=== PATIENT | male | born 1995 | race Hispanic/Latino ===

== ENCOUNTER 2021-01-18 10:55 | Emergency (ER) | payer SELFPAY ==
--- NOTE | 2021-01-18 13:16 | RAD REPORT ---
EXAM DESCRIPTION: Joseluis Single View01/18/2021 1:09 pm CLINICAL HISTORY: Chest pain COMPARISON: none FINDINGS: The lungs appear clear of acute infiltrate. The heart is normal size IMPRESSION: No acute abnormalities displayed
[2021-01-18 13:27] LABS: Basophils % 0.4 % (0-1.3); Hematocrit 52.7 % (39.6-49.0); MPV 8.3 fL (7.6-11.3); RBC Red Blood Cell Count 5.66 M/uL (4.33-5.43)
[2021-01-18] MEDS ORDERED: ASPIRIN 81 MG CHEWABLE TABLET ONE (13:29)
[2021-01-18] MEDS ORDERED: NA CHLORIDE 0.9% 1,000 ML ONE (13:30)
[2021-01-18 13:51] LABS: ALT/SGPT 22 U/L (12-78); AST/SGOT 16 U/L (15-37); Albumin 4.9 g/dL (3.4-5.0); Alkaline Phosphatase 70 U/L (45-117); BUN Blood Urea Nitrogen 15 mg/dL (7-18); Bicarbonate 24 mmol/L (21-32); Bilirubin Direct 0.1 mg/dL (0-0.2); Bilirubin Total 0.8 mg/dL (0.2-1.0); Glucose Level 91 mg/dL (74-106); Magnesium 2.5 mg/dL (1.8-2.4); Potassium 3.6 mmol/L (3.5-5.1); Protein, Total 8.7 g/dL (6.4-8.2); Sodium Level 139 mmol/L (136-145); Troponin (Emerg Dept Use Only) < 0.02 ng/mL (0.0-0.045)
--- NOTE | 2021-01-18 14:01 | EDPHYS ---
Physician Documentation [facility] Name: Joseluis Fowler Jr Age: 25 yrs Sex: Male : 1995 Arrival Date: 01/18/2021 Time: 10:56 Bed 11 Private MD: ED Physician Sheldon Campbell HPI: 01/18 13:22 This 25 yrs old Male presents to ER via Ambulatory with complaints of Chest wojciech Pain, Abnormal EKG. 13:22 The patient or guardian reports chest pain that is located primarily in the anterior wojciech chest wall. The pain does not radiate. Associated signs and symptoms: Pertinent positives: shortness of breath. The chest pain is described as a pressure. Duration: The patient or guardian reports multiple episodes, with no pattern. Severity of pain: At its worst the pain was mild in the emergency department the pain is unchanged. The patient has not experienced similar symptoms in the past. Historical: - Allergies: 11:20 No Known Allergies; vg1 - Home Meds: 11:20 finasteride oral [Active]; vg1 - PMHx: 11:20 None; vg1 - PSHx: 11:20 None; vg1 - Immunization history:: Client reports receiving the 2nd dose of the Covid vaccine. - Social history:: Smoking status: Patient denies any tobacco usage or history of. - Family history:: not pertinent. ROS: 13:22 Constitutional: Negative for fever, chills, and weight loss, Eyes: Negative for injury, wojciech pain, redness, and discharge, ENT: Negative for injury, pain, and discharge, Neck: Negative for injury, pain, and swelling, Respiratory: Negative for shortness of breath, cough, wheezing, and pleuritic chest pain, Abdomen/GI: Negative for abdominal pain, nausea, vomiting, diarrhea, and constipation, Back: Negative for injury and pain, : Negative for injury, bleeding, discharge, and swelling, MS/Extremity: Negative for injury and deformity, Skin: Negative for injury, rash, and discoloration, Neuro: Negative for headache, weakness, numbness, tingling, and seizure, Psych: Negative for depression, anxiety, suicide ideation, homicidal ideation, and hallucinations, Allergy/Immunology: Negative for hives, rash, and allergies, Endocrine: Negative for neck swelling, polydipsia, polyuria, polyphagia, and marked weight changes, Hematologic/Lymphatic: Negative for swollen nodes, abnormal bleeding, and unusual bruising. 13:22 Cardiovascular: Positive for chest pain, of the chest. Exam: 13:22 Constitutional: This is a well developed, well nourished patient who is awake, alert, wojciech and in no acute distress. Head/Face: Normocephalic, atraumatic. Eyes: Pupils equal round and reactive to light, extra-ocular motions intact. Lids and lashes normal. Conjunctiva and sclera are non-icteric and not injected. Cornea within normal limits. Periorbital areas with no swelling, redness, or edema. ENT: Nares patent. No nasal discharge, no septal abnormalities noted. Tympanic membranes are normal and external auditory canals are clear. Oropharynx with no redness, swelling, or masses, exudates, or evidence of obstruction, uvula midline. Mucous membranes moist. Neck: Trachea midline, no thyromegaly or masses palpated, and no cervical lymphadenopathy. Supple, full range of motion without nuchal rigidity, or vertebral point tenderness. No Meningismus. Chest/axilla: Normal chest wall appearance and motion. Nontender with no deformity. No lesions are appreciated. Cardiovascular: Regular rate and rhythm with a normal S1 and S2. No gallops, murmurs, or rubs. Normal PMI, no JVD. No pulse deficits. Respiratory: Lungs have equal breath sounds bilaterally, clear to auscultation and percussion. No rales, rhonchi or wheezes noted. No increased work of breathing, no retractions or nasal flaring. Abdomen/GI: Soft, non-tender, with normal bowel sounds. No distension or tympany. No guarding or rebound. No evidence of tenderness throughout. Back: No spinal tenderness. No costovertebral tenderness. Full range of motion. Male : Normal genitalia with no discharge or lesions. Skin: Warm, dry with normal turgor. Normal color with no rashes, no lesions, and no evidence of cellulitis. MS/ Extremity: Pulses equal, no cyanosis. Neurovascular intact. Full, normal range of motion. Neuro: Awake and alert, GCS 15, oriented to person, place, time, and situation. Cranial nerves II-XII grossly intact. Motor strength 5/5 in all extremities. Sensory grossly intact. Cerebellar exam normal. Normal gait. Psych: Awake, alert, with orientation to person, place and time. Behavior, mood, and affect are within normal limits. 13:22 Musculoskeletal/extremity: DVT Exam: No signs of deep vein thrombosis. no pain, no swelling, no tenderness, negative Homans' sign noted on exam, no appreciated bluish discoloration, no erythema, no increased warmth. 13:24 ECG was reviewed by the Attending Physician. [facility] Vital Signs: 11:17 BP 139 / 92; Pulse 95; Resp 16; Temp 99.2; Pulse Ox 100% ; Weight 63.05 kg; Height 5 vg1 ft. 4 in. (162.56 cm); Pain 0/10; 11:17 Body Mass Index 23.86 (63.05 kg, 162.56 cm) vg1 MDM: 12:55 Patient medically screened. wojciech 13:25 Differential diagnosis: abnormal EKG, acute myocardial infarction, acute pericarditis, wojciech anxiety, coronary artery disease chest wall pain, esophagitis, gastroesophageal reflux disease (GERD), pericarditis, pleurisy, pneumonia, pneumothorax, pulmonary embolus, stable angina, unstable angina. HEART Score: History: Slightly Suspicious (0), ECG: Normal (0), Age: < or = 45 years (0), Risk Factors: No Risk Factors Known (0), Troponin: < or = 1 x Normal Limit (0), Total Score = 0. The patient's deep vein thrombosis risk score was calculated as follows: Total Score: 0. This patient was found to be at low risk for a deep vein thrombosis by using the Well's assessment criteria. The patient's pulmonary embolism risk score was calculated as follows: Total Score: 0-2 points. This patient was found to be at low risk for a pulmonary embolism by using the Well's assessment criteria. MAGDA Risk Score: TOTAL SCORE = 0. Data reviewed: vital signs, nurses notes, lab test result(s), EKG, radiologic studies, plain films. Data interpreted: gambling monitor: rate is 95 beats/min, rhythm is regular, Pulse oximetry: on room air is 100 %. Test interpretation: by ED physician or midlevel provider: ECG, plain radiologic studies. Counseling: I had a detailed discussion with the patient and/or guardian regarding: the historical points, exam findings, and any diagnostic results supporting the discharge/admit diagnosis, lab results, radiology results, the need for outpatient follow up, for definitive care, a maintenance millwright, a family practitioner. 01/18 12:56 Order name: Basic Metabolic Panel; Complete Time: 13:53 [facility] 01/18 12:56 Order name: CBC with Diff; Complete Time: 13:42 [facility] 01/18 12:56 Order name: LFT's; Complete Time: 13:53 [facility] 01/18 12:56 Order name: Magnesium; Complete Time: 13:53 [facility] 01/18 12:56 Order name: Troponin (emerg Dept Use Only); Complete Time: 13:53 [facility] 01/18 12:56 Order name: D-Dimer; Complete Time: 13:42 [facility] 01/18 12:56 Order name: XRAY Chest (1 view); Complete Time: 13:42 [facility] 01/18 12:56 Order name: EKG; Complete Time: 12:57 [facility] 01/18 12:56 Order name: Cardiac monitoring; Complete Time: 13:22 [facility] 01/18 12:56 Order name: EKG - Nurse/Tech; Complete Time: 13:22 [facility] 01/18 12:56 Order name: IV Saline Lock; Complete Time: 13:22 [facility] 01/18 12:56 Order name: Labs collected and sent; Complete Time: 13:22 [facility] 01/18 12:56 Order name: O2 Per Protocol; Complete Time: 13:22 [facility] 01/18 12:56 Order name: O2 Sat Monitoring; Complete Time: 13:22 [facility] EC:24 Rate is 83 beats/min. Rhythm is regular. QRS [place] is Normal. NV interval is normal. QRS wojciech interval is normal. QT interval is normal. No Q waves. T waves are Normal. No ST changes noted. Clinical impression: Normal ECG and No evidence of ischemia. Interpreted by me. Reviewed by me. Administered Medications: 13:30 Drug: NS 0.9% 1000 ml Route: IV; Rate: 1 bolus; Site: right antecubital; ss 14:21 Follow up: IV Status: IV converted to saline lock; IV Intake: 500ml ss 13:38 Drug: Aspirin Chewable Tablet 162 mg Route: PO; ss 14:21 Follow up: Response: No adverse reaction ss Disposition Summary: 01/18/21 14:01 Discharge Ordered Location: Home wojciech Problem: new wojciech Symptoms: have improved wojciech Condition: Stable wojciech Diagnosis - Chest pain, unspecified wojciech Followup: wojciech - With: Private Physician - When: 2 - 3 days - Reason: Recheck today's complaints, Continuance of care, Re-evaluation by your physician Followup: wojciech - With: - When: 2 - 3 days - Reason: Recheck today's complaints, Re-evaluation by your physician Discharge Instructions: - Discharge Summary Sheet wojciech - Nonspecific Chest Pain, Adult wojciech - Chest Wall Pain wojciech - Chest Wall Pain, [id number] wojciech - Nonspecific Chest Pain, Adult, [id number] wojciech - Aspirin and Your Heart wojciech Forms: - Medication Reconciliation Form wojciech - Thank You Letter wojciech - Antibiotic Education wojciech - Prescription Opioid Use wojciech Prescriptions: - Ibuprofen 600 mg Oral Tablet - take 1 tablet by ORAL route every 6 hours As needed take with food; 30 tablet; [facility] Refills: 0, Product Selection Permitted Signatures: Dispatcher [employer] Sheldon Dillon MD MD cha Smirch, Shelby, RN RN ss Yamile Hudson RN RN vg1
--- NOTE | 2021-01-18 14:01 | ER ---
Nurse's Notes [facility] Name: Joseluis Fowler Jr Age: 25 yrs Sex: Male : 1995 Arrival Date: 01/18/2021 Time: 10:56 Bed 11 Private MD: Diagnosis: Chest pain, unspecified Presentation: 01/18 11:17 Chief complaint: Patient states: Chest pain for about a week 'that comes and goes'. vg1 States 'at times radiates to left side of neck and under left arm'. Denies NV, shortness of breath, but states 'a little bit of shortness of breath'. Today pt went to [facility] bc of chest pain and clinic had pt come to ED due to abnormal EKG read. Coronavirus screen: Vaccine status: Patient reports receiving the 2nd dose of the covid vaccine. Client denies travel out of the [place] in the last 14 days. Ebola Screen: Patient negative for fever greater than or equal to 101.5 degrees Fahrenheit, and additional compatible Ebola Virus Disease symptoms. Initial Sepsis Screen: Does the patient meet any 2 criteria? No. Patient's initial sepsis screen is negative. Does the patient have a suspected source of infection? No. Patient's initial sepsis screen is negative. Risk Assessment: Do you want to hurt yourself or someone else? Patient reports no desire to harm self or others. Onset of symptoms was January 11, 2021. 11:17 Method Of Arrival: Ambulatory vg1 11:17 Acuity: QUINN 3 vg1 Triage Assessment: 11:20 General: Appears in no apparent distress. comfortable, Behavior is calm, cooperative. vg1 Pain: Denies pain. Cardiovascular: Patient's skin is warm and dry. Historical: - Allergies: 11:20 No Known Allergies; vg1 - Home Meds: 11:20 finasteride oral [Active]; vg1 - PMHx: 11:20 None; vg1 - PSHx: 11:20 None; vg1 - Immunization history:: Client reports receiving the 2nd dose of the Covid vaccine. - Social history:: Smoking status: Patient denies any tobacco usage or history of. - Family history:: not pertinent. Screenin:54 Abuse screen: Denies threats or abuse. Denies injuries from another. Nutritional ss screening: No deficits noted. Tuberculosis screening: Never had TB. Fall Risk None identified. Assessment: 12:54 General: Appears in no apparent distress. comfortable, Behavior is cooperative, ss anxious, quiet, Denies fever, feeling ill, fatigue, chills. Pain: Complains of pain in chest at times radiates towards jaw. Pt thinks it could possibly be a tooth ache Pain currently is 0 out of 10 on a pain scale. Is episodic. Neuro: Level of Consciousness is awake, alert, obeys commands, Oriented to person, place, time, situation. Cardiovascular: Capillary refill < 3 seconds is brisk in bilateral fingers. Respiratory: Airway is patent Respiratory effort is even, unlabored, Respiratory pattern is regular, symmetrical. GI: No signs and/or symptoms were reported involving the gastrointestinal system. : No signs and/or symptoms were reported regarding the genitourinary system. EENT: Nares are clear. Derm: Skin is intact, is healthy with good turgor, Skin is dry, Skin is pink, warm \T\ dry. normal. Musculoskeletal: Circulation, motion, and sensation intact. Range of motion: intact in all extremities, Swelling absent. Vital Signs: 11:17 BP 139 / 92; Pulse 95; Resp 16; Temp 99.2; Pulse Ox 100% ; Weight 63.05 kg; Height 5 vg1 ft. 4 in. (162.56 cm); Pain 0/10; 11:17 Body Mass Index 23.86 (63.05 kg, 162.56 cm) vg1 ED Course: 10:56 Patient arrived in ED. as 11:20 Triage completed. vg1 11:20 Arm band placed on. EKG completed in triage. Results shown to MD. vg1 12:54 Patient has correct armband on for positive identification. media monitor on. Pulse ss ox on. NIBP on. 12:54 Patient maintains SpO2 saturation greater than 95% on room air. ss 12:55 Sheldon Campbell MD is Attending Physician. [facility] 13:09 XRAY Chest (1 view) In Process Unspecified. EDMS 13:12 Angela Vu, TRACEE is Primary Nurse. 13:22 Initial lab(s) drawn, by tx, sent to lab. Inserted saline lock: 20 gauge in right em1 antecubital area, using aseptic technique. Blood collected. 14:01 Rodolfo Swain MD is Referral Physician. [facility] 14:21 No provider procedures requiring assistance completed. IV discontinued, intact, ss bleeding controlled, No redness/swelling at site. Pressure dressing applied. Administered Medications: 13:30 Drug: NS 0.9% 1000 ml Route: IV; Rate: 1 bolus; Site: right antecubital; 14:21 Follow up: IV Status: IV converted to saline lock; IV Intake: 500ml 13:38 Drug: Aspirin Chewable Tablet 162 mg Route: PO; 14:21 Follow up: Response: No adverse reaction ss Intake: 14:21 IV: 500ml; Total: 500ml. Outcome: 14:01 Discharge ordered by . [facility] 14:21 Discharged to home ambulatory. 14:21 Condition: good 14:21 Discharge instructions given to patient, Instructed on discharge instructions, follow up and referral plans. Demonstrated understanding of instructions, follow-up care. 14:21 Patient left the ED. Signatures: Dispatcher [employer] EDGA Sheldon Campbell MD MD cha Martinez, Amelia as Martinez, Eric em1 Angela Vu RN RN Yamile Valdez RN RN vg1
[2021-01-18 14:32] VITALS: BP 139/92; TEMP 99.2; O2SAT 100
== END 2021-01-18 14:21 | disposition home or self-care (01) ==
LOC: ER 10:55
DX: R07.9 Chest pain, unspecified (principal)
CPT/HCPCS: 36415; 71045; 80048; 80076; 83735; 84484; 85025; 85379; 93005; 96360; 99285; J7030